=== PATIENT | female | born 1945 | race Native Hawaiian/Other Pacific Islander ===

== ENCOUNTER 2016-11-13 16:24 | Outpatient (CLI) | payer OTHER ==
[~2016-11-13] VITALS: Ht 154.9 cm; Wt 48.5 kg
[~2016-11-13 16:24] MED LIST: ALPR0.2566 PO; AMLO10TA PO; ASA LOW DOSE81 MG PO; CEPHALEXIN500 MG PO; CIPRO500 MG OR; CIPRO500 MG PO; GABA100C2 PO; GLIP10TA55 PO; GLIP5TAB65 PO; LAMISIL250 MG OR; LEVEMIR FLEXPEN SC; LOSA50TA PO; MACROBID100 MG OR; PRED10TA27 PO; PRILOSEC20 MG OR; SIMV20TA2 PO; TRAM50TA PO; TRIM800T12 PO
[2016-11-13 16:35] VITALS: BP 121/64; TEMP 98.6
== END 2016-11-13 20:06 | disposition home or self-care (01) ==
LOC: INF 16:24
DX: N39.0 Urinary tract infection, site not specified (principal)
CPT/HCPCS: 96365; J0713

== ENCOUNTER 2016-11-14 09:50 | Outpatient (CLI) | payer OTHER ==
[~2016-11-14] VITALS: Ht 30.5 cm; Wt 0.5 kg
== END 2016-11-14 18:59 | disposition home or self-care (01) ==
LOC: INF 09:50
DX: N39.0 Urinary tract infection, site not specified (principal)
CPT/HCPCS: 96365; J0713

== ENCOUNTER 2016-11-15 09:49 | Outpatient (CLI) | payer OTHER ==
[~2016-11-15] VITALS: Ht 30.5 cm; Wt 0.5 kg
== END 2016-11-15 18:53 | disposition home or self-care (01) ==
LOC: INF 09:49
DX: N39.0 Urinary tract infection, site not specified (principal)
CPT/HCPCS: 96365; J0713

== ENCOUNTER 2016-11-16 09:58 | Outpatient (CLI) | payer OTHER ==
[~2016-11-16] VITALS: Ht 154.9 cm; Wt 48.5 kg
[2016-11-16 10:00] VITALS: BP 136/76; TEMP 98.4
== END 2016-11-16 23:02 | disposition home or self-care (01) ==
LOC: INF 09:58
DX: N39.0 Urinary tract infection, site not specified (principal)
CPT/HCPCS: 96365; J0713

== ENCOUNTER 2016-11-17 09:41 | Outpatient (CLI) | payer OTHER ==
[~2016-11-17] VITALS: Ht 154.9 cm; Wt 48.5 kg
[2016-11-17 09:50] VITALS: BP 137/65; TEMP 98.4
[2016-11-17 11:09] VITALS: BP 134/70; TEMP 98.4
== END 2016-11-17 11:41 | disposition home or self-care (01) ==
LOC: INF 09:41
DX: N39.0 Urinary tract infection, site not specified (principal)
CPT/HCPCS: 96365; J0713

== ENCOUNTER 2016-11-18 09:36 | Outpatient (CLI) | payer OTHER ==
[~2016-11-18] VITALS: Ht 154.9 cm; Wt 48.5 kg
[2016-11-18 09:50] VITALS: BP 144/64; TEMP 98.2
[2016-11-18 10:37] VITALS: BP 121/59; TEMP 98.2
== END 2016-11-18 10:39 | disposition home or self-care (01) ==
LOC: INF 09:36
DX: N39.0 Urinary tract infection, site not specified (principal)
CPT/HCPCS: 96365; J0713

== ENCOUNTER 2016-11-19 09:39 | Outpatient (CLI) | payer OTHER ==
[~2016-11-19] VITALS: Ht 154.9 cm; Wt 48.5 kg
[2016-11-19 09:45] VITALS: BP 137/66; TEMP 98
[2016-11-19 11:13] VITALS: BP 130/66; TEMP 98
== END 2016-11-19 19:13 | disposition home or self-care (01) ==
LOC: INF 09:39
DX: N39.0 Urinary tract infection, site not specified (principal)
CPT/HCPCS: 96365; J0713

== ENCOUNTER 2016-11-23 09:31 | Outpatient (CLI) | payer OTHER | END 2016-11-23 20:12 | disposition home or self-care (01) | LOC: LABW 09:31 | DX: N39.0 Urinary tract infection, site not specified (principal) | CPT/HCPCS: 81000 ==

== ENCOUNTER 2017-07-07 13:30 | Outpatient (CLI) | payer OTHER | END 2017-07-07 14:30 | disposition home or self-care (01) | LOC: LAB 13:30 | DX: N39.0 Urinary tract infection, site not specified (principal) | CPT/HCPCS: 87077; 87086; 87088; 87186 ==

== ENCOUNTER 2017-08-11 13:46 | Outpatient (CLI) | payer OTHER | END 2017-08-11 19:01 | disposition home or self-care (01) | LOC: LAB 13:46 | DX: N39.0 Urinary tract infection, site not specified (principal) | CPT/HCPCS: 87077; 87086; 87088; 87186 ==

== ENCOUNTER 2018-03-09 15:18 | Outpatient (CLI) | payer OTHER | END 2018-03-09 22:30 | disposition home or self-care (01) | LOC: LAB 15:18 | DX: N39.0 Urinary tract infection, site not specified (principal) | CPT/HCPCS: 87077; 87086; 87088; 87186 ==

== ENCOUNTER 2018-06-01 13:31 | Outpatient (CLI) | payer OTHER ==
[2018-06-01 13:57] LABS: PLATELET COUNT 351 K/uL (152-353)
== END 2018-06-01 23:58 | disposition home or self-care (01) ==
LOC: LAB 13:31
PROVIDERS: Internal Medicine
DX: E11.8 Type 2 diabetes mellitus with unspecified complications (principal)
CPT/HCPCS: 80061; 83036; 84439; 84443; 85027

== ENCOUNTER 2018-07-18 14:16 | Outpatient (CLI) | payer OTHER | END 2018-07-18 19:26 | disposition home or self-care (01) | LOC: RAD 14:16 | DX: M54.5 Low back pain (principal) ==

== ENCOUNTER 2018-09-01 14:12 | Outpatient (CLI) | payer OTHER | END 2018-09-01 19:43 | disposition home or self-care (01) | LOC: LAB 14:12 | DX: N39.0 Urinary tract infection, site not specified (principal) | CPT/HCPCS: 87077; 87086; 87088; 87186 ==

== ENCOUNTER 2018-11-17 09:45 | Outpatient (CLI) | payer OTHER | END 2018-11-17 20:30 | disposition home or self-care (01) | LOC: LAB 09:45 | DX: R30.0 Dysuria (principal) | CPT/HCPCS: 87077; 87086; 87088; 87186 ==

== ENCOUNTER 2018-12-01 10:00 | Outpatient (CLI) | payer OTHER ==
[2018-12-01 10:17] LABS: PLATELET COUNT 389 K/uL (152-353)
[2018-12-01 10:48] LABS: POTASSIUM 4.7 mmol/L (3.6-5.2)
== END 2018-12-01 21:50 | disposition home or self-care (01) ==
LOC: LABW 10:00
PROVIDERS: Internal Medicine
DX: E11.9 Type 2 diabetes mellitus without complications (principal); R82.998 Other abnormal findings in urine
CPT/HCPCS: 36415; 80053; 80061; 81000; 82043; 82570; 83036; 84439; 84443; 85027; 87077; 87086; 87088; 87186

== ENCOUNTER 2019-03-08 13:45 | Outpatient (CLI) | payer OTHER | END 2019-03-08 23:31 | disposition home or self-care (01) | LOC: LAB 13:45 | DX: N39.0 Urinary tract infection, site not specified (principal) | CPT/HCPCS: 87077; 87086; 87088; 87186 ==

== ENCOUNTER 2020-08-24 11:27 | Outpatient (CLI) | payer OTHER ==
[2020-08-24 12:41] LABS: POTASSIUM 3.8 mmol/L (3.6-5.2)
== END 2020-08-24 18:55 | disposition home or self-care (01) ==
LOC: LAB 11:27
PROVIDERS: ATTEND Internal Medicine
DX: E11.69 Type 2 diabetes mellitus with other specified complication (principal)
CPT/HCPCS: 80053; 80061; 83036; 84439; 84443

== ENCOUNTER 2020-10-17 09:48 | Emergency (ER) | payer OTHER ==
[~2020-10-17] VITALS: Ht 157.5 cm; Wt 49.9 kg
[2020-10-17 09:48] VITALS: TEMP 99.1
[2020-10-17 11:15] VITALS: BP 128/42
== END 2020-10-17 11:15 | disposition home or self-care (01) ==
LOC: ED 09:55
DX: S30.0XXA Contusion of lower back and pelvis, initial encounter (principal); S50.811A Abrasion of right forearm, initial encounter; W10.8XXA Fall (on) (from) other stairs and steps, initial encounter; Y92.89 Other specified places as the place of occurrence of the external cause
CPT/HCPCS: 90471; 90715; 99283

== ENCOUNTER 2020-11-29 10:53 | Outpatient (CLI) | payer OTHER | END 2020-11-29 20:56 | disposition home or self-care (01) | LOC: RESP 10:53 | PROVIDERS: ATTEND Internal Medicine | DX: R00.2 Palpitations (principal) | CPT/HCPCS: 93225 ==

== ENCOUNTER 2020-12-02 08:41 | Outpatient (CLI) | payer OTHER ==
[2020-12-02 09:25] LABS: POTASSIUM 4.3 mmol/L (3.6-5.2)
[2020-12-02 11:28] LABS: PLATELET COUNT 495 K/uL (152-353)
== END 2020-12-02 22:48 | disposition home or self-care (01) ==
LOC: LABW 08:41
PROVIDERS: ATTEND Internal Medicine
DX: E11.9 Type 2 diabetes mellitus without complications (principal)
CPT/HCPCS: 36415; 80053; 80061; 83036; 84439; 84443; 85027

== ENCOUNTER 2021-02-11 10:15 | Outpatient (CLI) | payer OTHER ==
[2021-02-11 10:47] LABS: PLATELET COUNT 341 K/uL (152-353)
== END 2021-02-11 21:59 | disposition home or self-care (01) ==
LOC: LAB 10:15
PROVIDERS: ATTEND Internal Medicine
DX: D64.89 Other specified anemias (principal); R00.0 Tachycardia, unspecified
CPT/HCPCS: 85027

== ENCOUNTER 2021-02-18 09:14 | Outpatient (CLI) | payer OTHER ==
[2021-02-18 09:33] LABS: PLATELET COUNT 304 K/uL (152-353)
== END 2021-02-18 19:33 | disposition home or self-care (01) ==
LOC: LAB 09:14
PROVIDERS: ATTEND Internal Medicine
DX: D64.89 Other specified anemias (principal); R00.0 Tachycardia, unspecified
CPT/HCPCS: 85027

== ENCOUNTER 2021-03-04 12:08 | Outpatient (CLI) | payer OTHER ==
[2021-03-04 12:32] LABS: PLATELET COUNT 195 K/uL (152-353)
== END 2021-03-04 22:18 | disposition home or self-care (01) ==
LOC: LAB 12:08
PROVIDERS: ATTEND Internal Medicine
DX: D64.89 Other specified anemias (principal); R00.0 Tachycardia, unspecified
CPT/HCPCS: 85027

== ENCOUNTER 2021-04-14 14:22 | Inpatient (IN) | payer OTHER ==
[2021-04-26 00:52] LABS: PLATELET COUNT 234 K/uL (152-353)
== END 2021-05-04 08:00 | disposition still patient (30) ==
LOC: PAVB 14:22
PROVIDERS: ADMIT Internal Medicine; ATTEND Internal Medicine
DX: N18.6 End stage renal disease (principal); M62.81 Muscle weakness (generalized); R26.2 Difficulty in walking, not elsewhere classified; R13.12 Dysphagia, oropharyngeal phase; E46 Unspecified protein-calorie malnutrition; D63.8 Anemia in other chronic diseases classified elsewhere
CPT/HCPCS: 36415; 80053; 80061; 81000; 82306; 82542; 83036; 84443; 85027; 87077; 87081; 87086; 87088; 87186

== ENCOUNTER 2021-04-15 06:00 | Outpatient (CLI) | payer OTHER ==
[2021-04-15 07:39] LABS: PLATELET COUNT 324 K/uL (152-353)
[2021-04-15 08:02] LABS: POTASSIUM 5.3 mmol/L (3.6-5.2)
== END 2021-04-15 20:56 | disposition home or self-care (01) ==
LOC: LAB 06:00
PROVIDERS: ATTEND Internal Medicine
DX: E11.9 Type 2 diabetes mellitus without complications (principal); E78.49 Other hyperlipidemia; E46 Unspecified protein-calorie malnutrition; N25.81 Secondary hyperparathyroidism of renal origin; D63.8 Anemia in other chronic diseases classified elsewhere
CPT/HCPCS: 36415; 80053; 80061; 82306; 83036; 84443; 85027; 87081

== ENCOUNTER 2021-04-19 19:09 | Emergency (ER) | payer OTHER ==
[~2021-04-19] VITALS: Ht 157.5 cm; Wt 39.9 kg
[2021-04-19 19:15] VITALS: TEMP 99.5
[2021-04-19 20:15] LABS: POTASSIUM 3.6 mmol/L (3.6-5.2)
[2021-04-19 21:00] VITALS: BP 93/51
== END 2021-04-19 21:12 | disposition short-term general hospital (02) ==
LOC: ED 19:22
PROVIDERS: Emergency Medicine
DX: S02.80XA Fracture of other specified skull and facial bones, unspecified side, initial encounter for closed fracture (principal); S06.5X0A Traumatic subdural hemorrhage without loss of consciousness, initial encounter; N18.6 End stage renal disease; Z99.2 Dependence on renal dialysis; E11.9 Type 2 diabetes mellitus without complications; Z79.4 Long term (current) use of insulin; S51.812A Laceration without foreign body of left forearm, initial encounter; W18.39XA Other fall on same level, initial encounter; Y92.89 Other specified places as the place of occurrence of the external cause
CPT/HCPCS: 36415; 80053; 96375; 99285; J2270; J2405

== ENCOUNTER 2021-05-03 11:06 | Emergency (ER) | payer OTHER ==
[~2021-05-03] VITALS: Ht 157.5 cm; Wt 39.9 kg
[2021-05-03 12:39] LABS: PLATELET COUNT 291 K/uL (152-353)
[2021-05-03 12:50] LABS: POTASSIUM 3.1 mmol/L (3.6-5.2)
[2021-05-03 13:20] LABS: PARTIAL THROMBOPLASTIN TIME 40.3 SECONDS (24.5-33.6)
[2021-05-03 14:30] VITALS: BP 142/65; TEMP 96.7
== END 2021-05-03 14:31 | disposition short-term general hospital (02) ==
LOC: ED 11:06
PROVIDERS: Emergency Medicine
DX: R55 Syncope and collapse (principal); I95.89 Other hypotension; R79.89 Other specified abnormal findings of blood chemistry; N18.6 End stage renal disease; Z99.2 Dependence on renal dialysis; Z20.822 Contact with and (suspected) exposure to COVID-19
CPT/HCPCS: 80053; 83880; 84484; 85027; 85379; 85610; 85730; 87635; 93005; 96360; 96372; 99285; J2405; U0003

== ENCOUNTER 2021-05-04 09:00 | Inpatient (IN) | payer OTHER | END 2021-05-26 12:00 | disposition E | LOC: PAVB 09:00 | PROVIDERS: ADMIT Internal Medicine; ATTEND Internal Medicine | DX: N18.6 End stage renal disease (principal); R13.12 Dysphagia, oropharyngeal phase; R26.81 Unsteadiness on feet; M62.81 Muscle weakness (generalized); Z74.1 Need for assistance with personal care; E46 Unspecified protein-calorie malnutrition; D63.8 Anemia in other chronic diseases classified elsewhere ==

== ENCOUNTER 2021-05-23 20:47 | Emergency (ER) | payer OTHER ==
[~2021-05-23] VITALS: Ht 157.5 cm; Wt 41.3 kg
[2021-05-23 22:04] LABS: PLATELET COUNT 326 K/uL (152-353)
[2021-05-23 22:20] LABS: POTASSIUM 3.6 mmol/L (3.6-5.2)
[2021-05-23 23:33] VITALS: BP 78/30; TEMP 97.3
== END 2021-05-23 23:33 ==
LOC: ED 20:47
PROVIDERS: Hospitalist
DX: N18.6 End stage renal disease (principal); Z99.2 Dependence on renal dialysis; E11.9 Type 2 diabetes mellitus without complications; I50.9 Heart failure, unspecified
CPT/HCPCS: 80053; 80320; 82550; 83880; 84484; 85027; 93005; 99283